=== PATIENT | female | born 2000 | race Caucasian/White ===

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

== ENCOUNTER 2021-05-20 22:29 | Emergency (ER) | payer OTHER ==
[~2021-05-20] VITALS: Ht 160 cm; Wt 77.3 kg
[~2021-05-20 22:29] MED LIST: GIANVI 3 MG-0.01 TAB PO; NAPROXEN 3375 MG/TAB PO; ZOFRAN ODT4 MG PO
[2021-05-20 22:36] VITALS: TEMP 98
[2021-05-20 22:51] LABS: HEMATOCRIT 38.5 % (35.0-45.0); HEMOGLOBIN 12.8 g/dl (12.0-15.0); MEAN CELL VOLUME 84 fl (80.0-95.0); MEAN CORPUSCULAR HEMOGLOBIN 28 pg (26.0-32.0); MEAN CORPUSCULAR HGB CONC 33 g/dl (33.0-37.0); MEAN PLATELET VOLUME 9.6 fl (7.4-10.4); PLATELET COUNT 364 K/mm3 (130-400); RED BLOOD COUNT 4.58 M/mm3 (4.10-5.30)
[2021-05-20 23:12] LABS: ALBUMIN 4.5 gm/dL (3.5-5.0); BILIRUBIN,TOTAL 0.1 mg/dL (0.2-1.2); CREATININE, serum 0.75 mg/dL (0.57-1.11); POTASSIUM 3.8 mmol/L (3.5-4.5); TOTAL PROTEIN 7.4 gm/dL (6.2-8.1)
[2021-05-20 23:16] LABS: BAND 2 % (0-10); EOSINOPHIL 8 % (0-4); NEUTROPHILS 34 % (42.0-75.2)
[2021-05-20 23:19] LABS: LYMPHOCYTE 45 % (20.0-51.0)
[2021-05-20 23:20] LABS: PLATELET ESTIMATE NORMAL (NORMAL)
[2021-05-20 23:32] LABS: COLLECTION METHOD CLEAN CATCH
[2021-05-20 23:45] LABS: TRICYCLIC ANTIDEPRESS URINE NEGATIVE
[2021-05-20 23:50] LABS: AMORPHOUS CRYSTAL Present /uL; PH 7 (5-8); SQUAMOUS EPITHELIAL 0-2 /hpf; URINE APPEARANCE Hazy; URINE BACTERIA None Seen /hpf; URINE BILIRUBIN Negative (NEGATIVE); URINE BLOOD Negative (NEGATIVE); URINE COLOR Straw; URINE GLUCOSE Negative (NEGATIVE); URINE KETONE Negative (NEGATIVE); URINE LEUKOCYTE ESTERASE Negative (NEGATIVE); URINE NITRATE Negative (NEGATIVE); URINE PROTEIN(semi-quant) Negative (NEGATIVE); URINE RBC 0-2 /hpf; URINE UROBILINOGEN Negative (NEGATIVE)
[2021-05-21 01:30] VITALS: BP 144/89; PULSE 98
[2021-05-21 08:39] LABS: PATHOLOGY DIFF REVIEW OK +
== END 2021-05-21 01:30 | disposition home or self-care (01) ==
LOC: COL.ER 22:29
PROVIDERS: Nurse Practitioner Primary Care
DX: T40.714A Poisoning by cannabis, undetermined, initial encounter (principal); R00.0 Tachycardia, unspecified; F17.290 Nicotine dependence, other tobacco product, uncomplicated
CPT/HCPCS: J2060; J7030